=== PATIENT | female | born 1965 | race Caucasian/White ===

== ENCOUNTER 2020-01-10 01:27 | Emergency (ER) | payer BC, SELFPAY ==
--- NOTE | ~2020-01-10 | CT_ITS ---
EXAMINATION: CT abdomen pelvis w con DATE: 01/10/2020 02:23 INDICATION: Right flank pain TECHNIQUE: Computed tomography (CT) of the abdomen and pelvis was performed with 100 mL Omnipaque-350 intravenous contrast. Automated exposure control and iterative reconstruction technique were employe d. The dose-length product was 661.62 mGy-cm. COMPARISON: None FINDINGS: Minimal left basilar atelectasis. Heart size is normal. No pericardial or pleural effusion. Small sli ding-type hiatal hernia. 3 hepatic cysts the largest measuring 3.9 cm in maximal diameter. Gallbladde r, spleen, pancreas and bilateral adrenal glands are normal. Bilateral nephrolithiasis and obstructin g 2.5 mm stone at the right ureterovesicular junction with mild right hydroureteronephrosis and periu reteral stranding. There is also asymmetric mildly delayed right nephrogram. Additional 3 mm stone in an upper pole calyx of the left kidney and nonobstructing 2 mm stone in an upper pole calyx of the l eft kidney. Intestinal malrotation. No abnormal bowel wall thickening or obstruction. The appendix is not visualized. No pericecal inflammatory change to suggest acute appendicitis. Bladder is normal. U terus and bilateral adnexa are unremarkable. No free intraperitoneal gas or fluid. No pathologically enlarged abdominal or pelvic lymphadenopathy. Mild lumbar levocurvature. IMPRESSION: 1. Bilateral nephrolithiasis with obstructing 3 mm stone at the right ureterovesicular junction resul ting in mild right hydroureteronephrosis and delayed right nephrogram. 2. Small sliding-type hiatal hernia. 3. Intestinal malrotation. Reviewed, dictated and finalized at location A. IMPRESSION: 1. Bilateral nephrolithiasis with obstructing 3 mm stone at the right ureterove sicular junction resulting in mild right hydroureteronephrosis and delayed righ t nephrogram. 2. Small sliding-type hiatal hernia. 3. Intestinal malrotation.
[2020-01-10 01:26] VITALS: BP 172/97; PULSE 86; RESP 23; TEMP 36.7; O2SAT 100
--- NOTE | 2020-01-10 01:27 | ED.ABDPAIN ---
HPI - Abdominal Pain General Chief Complaint: Abdominal Pain Stated Complaint: abd pain Time Seen by Provider: 01/10/20 01:27 Source: patient and RN notes reviewed Mode of arrival: EMS Limitations: clinical condition History of Present Illness HPI narrative: A 54 y/o female presents to the ED via EMS from home with severe, constant, rt flank pain beginning roughly 1 hour ago. She states that the pain radiates into her RLQ. She reports some associated N/V and dysuria. MD elicited complaint: flank pain Onset (ago): hour(s) (1) Pain Consistency: constant Location: R flank Severity: severe Radiation: RLQ Associated symptoms: nausea, vomiting and dysuria Related Data Allergies Allergy/AdvReac Type Severity Reaction Status Date / Time Penicillins Allergy Rash Verified 01/10/20 02:48 Review of Systems Review of Systems: All systems reviewed & are unremarkable except as noted in HPI and below Gastrointestinal: Gastrointestinal: Reports nausea and Reports vomiting Genitourinary: Genitourinary: Reports dysuria and Reports flank pain (Rt that radiates into her RLQ) [facility] Past Medical History Medical History Ankylosing spondylitis Medical history unknown Surgical History Surgical History History of appendectomy History of colonoscopy Surgical history unknown Social History Social History Smoking status: Unknown if ever smoked Exam Const: General: healthy appearing and alert Orientation/consciousness: patient oriented x3 Other: moderate ditress HENMT: Head: normal to inspection Mouth: Yes moist mucous membranes Resp: Effort & Inspection: normal respiratory effort Auscultation: clear to auscultation bilaterally Cardio: Rate: regular rate Rhythm: regular rhythm GI: GI Palp: Yes Soft to palpation and Yes Tenderness to palpation present (GI) Skin: General skin exam: normal color Neuro: General: patient oriented x3 and moves all extremities Speech: normal speech Extrem: General: normal to inspection Psych: Affect: Anxious affect present Course Vital Signs Vital signs: Vital Signs Temperature 36.7 C 01/10/20 01:26 Pulse Rate 86 01/10/20 01:26 Respiratory Rate 23 H 01/10/20 01:26 Blood Pressure 172/97 H 01/10/20 01:26 Pulse Oximetry 100 01/10/20 01:26 Temperature 36.7 C 01/10/20 01:26 Pulse Rate 88 01/10/20 03:56 Respiratory Rate 18 01/10/20 03:56 Blood Pressure 132/77 01/10/20 03:56 Pulse Oximetry 98 01/10/20 03:56 MDM - Abdominal Pain Differential Diagnosis Differential diagnosis: Likely abdominal pain, calculus of kidney, pancreatitis and small bowel obstruction Medical Records Attestation: I reviewed the patient's medical records. Lab Data Attestation: I reviewed the patient's lab results. Result diagrams: 01/10/20 01:40 01/10/20 01:40 Labs: Lab Results 01/10/20 01/10/20 01/10/20 Range/Units 01:40 01:40 03:15 WBC 12.9 H (4.5-10.0) K/mm3 RBC 4.41 (4.2-5.4) M/mm3 Hgb 13.1 (12.0-15.0) g/dL Hct 39.7 (37.0-47.0) % MCV 90.0 (80-100) fl MCH 29.7 (26-34) pg MCHC 33.0 (32-36) g/dl RDW 13.2 (11.5-14.5) % Plt Count 323 (150-375) k/mm3 MPV 9.2 (7.4-10.4) fl Immature Gran % (Auto) 0.2 (0-0.5) % Neut % (Auto) 72.0 (45.5-73.1) % Lymph % (Auto) 22.3 (18.3-44.2) % [place] % (Auto) 4.1 (2.6-8.5) % Eos % (Auto) 0.5 (0-4.4) % Baso % (Auto) 0.9 (0.2-1.2) % Lymph # (Auto) 2.88 (0.9-3.2) K/mm3 [place] # (Auto) 0.5 (0.1-0.6) K/mm3 Eos # (Auto) 0.1 (0-0.3) K/mm3 Baso # (Auto) 0.1 (0.0-0.1) K/mm3 Abs Immat Gran (auto) 0.03 (0.00-0.031) K/mm3 Absolute Neuts (auto) 9.3 H (1.3-6.7) K/mm3 Absolute Nucleated RBC 0.0 (0.0-0.012) K/mm3 Nucleated RBC % 0.0 (0.0-0.2) % Sodium 139 (137-145) mmol/L Pot
[2020-01-10] MEDS: ONDANSETRON INJ 4 MG/2 ML VIAL IV PUSH (01:46)
[2020-01-10 01:48] LABS: Basophils Absolute Auto 0.1 K/mm3 (0.0-0.1); Basophils Percent Auto 0.9 % (0.2-1.2); Eosinophils Absolute Auto 0.1 K/mm3 (0-0.3); Eosinophils Percent Auto 0.5 % (0-4.4); Hematocrit 39.7 % (37.0-47.0); Hemoglobin 13.1 g/dL (12.0-15.0); Immature Granulocyte Absolute 0.03 K/mm3 (0.00-0.031); Immature Granulocyte Percent A 0.2 % (0-0.5); Lymphocytes Absolute Auto 2.88 K/mm3 (0.9-3.2); Lymphocytes Percent Auto 22.3 % (18.3-44.2); Mean Corpuscular Hemoglobin 29.7 pg (26-34); Mean Platelet Volume 9.2 fl (7.4-10.4); Monocytes Absolute Auto 0.5 K/mm3 (0.1-0.6); Monocytes Percent Auto 4.1 % (2.6-8.5); Neutrophils Absolute Auto 9.3 K/mm3 (1.3-6.7); Platelet Count Result 323 k/mm3 (150-375); Red Blood Count 4.41 M/mm3 (4.2-5.4); Red Cell Distribution Width 13.2 % (11.5-14.5); White Blood Count 12.9 K/mm3 (4.5-10.0)
[2020-01-10 02:02] LABS: Alanine Aminotransferase 19 U/L (4-35); Albumin Level 4.4 g/dL (3.5-5.1); Alkaline Phosphatase 110 U/L (38-126); Aspartate Amino Transferase 22 U/L (14-36); Bilirubin,Total 0.2 mg/dL (0.2-1.3); Blood Urea Nitrogen 18 mg/dL (7-17); Calcium 9.6 mg/dL (8.4-10.2); Carbon Dioxide 22 mmol/L (22-30); Chloride 107 mmol/L (98-107); Estimated Glomerular Filt Rate > 60; Glucose 182 mg/dL (65-105); Lipase 74 U/L (23-300); Potassium 4.1 mmol/L (3.4-5.0); Sodium 139 mmol/L (137-145)
[2020-01-10] MEDS: TAMSULOSIN HCL 0.4 MG CAPSULE PO (02:49)
[2020-01-10] MEDS: KETOROLAC 30 MG/ML VIAL (*BKC) IV PUSH (02:50)
[2020-01-10] MEDS: SODIUM CHLORIDE 0.9% IV 1,000 ML 999 ML IV CONT (02:50)
[2020-01-10 03:34] LABS: Add Urine Microscopic? YES; Appearance Urine Clear (Clear); Bilirubin Urine Negative (Negative); Blood Urine 1+ (Negative); Color Urine Colorless (Yellow); Glucose Urine UA Negative (Negative); Ketones Urine Trace mg/dL (Negative); Leukocyte Esterase Ur Negative LEU/UL (Negative); Nitrate Urine Negative (Negative); Protein Urine Negative (Negative); Urobilinogen Urine Negative mg/dL (<2.0); WBC Urine 0-3 /hpf
[2020-01-10 03:56] VITALS: BP 132/77; PULSE 88; RESP 18; O2SAT 98
[2020-01-10 04:00] LABS: Specific Grav Ur 1.046 (1.001-1.035)
== END 2020-01-10 03:57 | disposition home or self-care (01) ==
PROVIDERS: Emergency Provider Emergency Medicine; PCP Family Medicine
DX: N13.2 Hydronephrosis with renal and ureteral calculous obstruction (principal); M45.9 Ankylosing spondylitis of unspecified sites in spine
CPT/HCPCS: 36415; 74177; 80053; 81001; 83690; 85025; 96361; 96374; 96375; 99284; A9270; J1885; J2405; J3010; J7030; Q9967

== ENCOUNTER 2020-04-14 13:07 | Emergency (ER) | payer BC, SELFPAY ==
--- NOTE | ~2020-04-14 | XR_ITS ---
XR wrist RT min 3V 04/14/2020 14:30 Indication: Right wrist pain after fall Procedure: 3 views right wrist Comparison: No prior studies for comparison. Findings: There is a comminuted intra-articular impaction fracture of the distal radius. There is mil d dorsal tilt. There is an ulnar styloid avulsion fracture. No definite carpal fracture. Impression: 1: Comminuted intra-articular impaction fracture distal aspect of the right radius with mild dorsal t ilt. 2: Ulnar styloid avulsion fracture. Reviewed, dictated and finalized at location A. Impression: 1: Comminuted intra-articular impaction fracture distal aspect of the right rad ius with mild dorsal tilt. 2: Ulnar styloid avulsion fracture.
--- NOTE | ~2020-04-14 | XR_ITS ---
EXAMINATION: XR pelvis 1-2V EXAM DATE: 04/14/2020 14:29 INDICATION: Fall from 12 foot duct. TECHNIQUE: Pelvis frontal projection(s) obtained and reviewed. There is no prior study for compariso n. Correlation was made with CT abdomen same date. FINDINGS: There are no acute pelvic fractures or dislocations identified. There is no subcutaneous g as. The soft tissue is unremarkable. Calcifications in the pelvis are believed to be phleboliths. There are no radiopaque foreign bodies. IMPRESSION: No acute osseous findings. Reviewed, dictated and finalized at location B. IMPRESSION: No acute osseous findings.
--- NOTE | ~2020-04-14 | XR_ITS ---
EXAMINATION: XR wrist LT 2V DATE: 04/14/2020 14:30 INDICATION: Left wrist pain post fall TECHNIQUE: Posteroanterior and lateral views of the left wrist were obtained. COMPARISON: none FINDINGS: Minimally displaced intra-articular fracture of the distal left radius. There is approximately 1 mm p almar displacement of a fragment compressing the palmar half of the distal articular surface with 1 m m lucent fracture plane without appreciable incongruity at the central articular surface on the later al projection. No other fractures identified. Normal alignment and joint spaces at the carpus. Periph eral IV at the dorsal aspect of the left hand. IMPRESSION: 1. Minimal displacement of an intra-articular fracture of the distal left radius. Reviewed, dictated and finalized at location A. IMPRESSION: 1. Minimal displacement of an intra-articular fracture of the distal left radiu s.
--- NOTE | ~2020-04-14 | CT_ITS ---
EXAMINATION: CT brain wo con DATE: 04/14/2020 13:56 INDICATION: 12 foot fall presenting with neck pain TECHNIQUE: Computed tomography (CT) of the head was performed without intravenous contrast. Sagittal and coronal reconstructions were performed. The mA was adjusted according to patient size. Iterative reconstruction technique was employed. The dose-length product was 529.67 mGy-cm. COMPARISON: Brain MR dated 11/28/2013 FINDINGS: No fracture. No acute intracranial hemorrhage, acute infarction or abnormal extra axial fluid collect ion. Ventricles are normal and symmetric. No mass/mass effect. The orbits, paranasal sinuses and mast oid air cells are normal. IMPRESSION: 1. Normal head CT. No fracture or acute intracranial process. Reviewed, dictated and finalized at location A.
--- NOTE | ~2020-04-14 | XR_ITS ---
XR knee LT min 4V 04/14/2020 14:29 INDICATION: Left lateral knee pain after fall PROCEDURE: 4 views left knee COMPARISON: No prior studies for comparison. FINDINGS: Fracture, dislocation or subluxation is not identified. No significant joint effusion. Ther e is a fabella, normal variant. The soft tissues appear within normal limits. No foreign bodies are identified. IMPRESSION: 1: NO ACUTE BONE OR JOINT ABNORMALITY IDENTIFIED. Reviewed, dictated and finalized at location A.
--- NOTE | ~2020-04-14 | XR_ITS ---
EXAMINATION: XR chest 1V EXAM DATE: 04/14/2020 14:30 INDICATION: Fall from 12 foot ladder. TECHNIQUE: Portable AP frontal chest x-ray was obtained. There is no prior study for comparison. FINDINGS: Acute comminuted right mid clavicular fracture with complete shaft width inferior displacem ent. The lungs are clear. There are no pleural effusions. The cardiomediastinal silhouette is withi n normal limits. There is no pneumothorax suspected. IMPRESSION: 1. No acute cardiopulmonary findings. 2. Right midclavicular shaft fracture. Reviewed, dictated and finalized at location B.
--- NOTE | ~2020-04-14 | XR_ITS ---
EXAMINATION: XR shoulder RT min 2V DATE: 04/14/2020 14:30 INDICATION: Right shoulder pain post fall TECHNIQUE: AP internally rotated, AP oblique externally rotated and transscapular Y views of the righ t shoulder were obtained. COMPARISON: None FINDINGS: Comminuted mid right clavicular diaphyseal fracture. There is one shaft width caudal displacement of the lateral fragment and mild angulation of a short intervening segmental fragment. Normal alignment at the right glenohumeral and acromioclavicular joints with mild acromioclavicular osteoarthritis and relatively preserved right glenohumeral joint space. No other fractures identified. Visualized porti ons of the lungs are clear. IMPRESSION: One shaft width displacement of a mildly comminuted fracture of the mid right clavicle. Reviewed, dictated and finalized at location A. IMPRESSION: One shaft width displacement of a mildly comminuted fracture of the mid right c lavicle.
--- NOTE | ~2020-04-14 | CT_ITS ---
EXAMINATION: CT cervical spine wo con DATE: 04/14/2020 13:57 INDICATION: Neck pain post 12 foot fall. TECHNIQUE: Computed tomography (CT) of the cervical spine was performed without intravenous contrast. Automated exposure control and iterative reconstruction technique were employed. The dose-length pro duct was 239.88 mGy-cm. COMPARISON: None FINDINGS: Alignment is normal. Vertebral body heights are normal. No fracture. Moderate disc height loss at C5- C6 and C6-C7. Mild disc height loss at C4-C5. Moderate to severe bilateral uncovertebral osteoarthrit is and posterior disc osteophyte complex at each of these levels resulting in mild central canal sten osis and mild bilateral neural foraminal stenosis. Cervical soft tissues are unremarkable. Mild biapi osorio pleural-parenchymal scarring. IMPRESSION: 1. Moderate cervical spondylosis. No acute osseous abnormality. Reviewed, dictated and finalized at location A.
[2020-04-14 13:13] VITALS: BP 102/81; RESP 18; TEMP 36.3; O2SAT 98
--- NOTE | 2020-04-14 13:35 | ECG_ITS ---
Measurements Intervals [place] Rate: 67 P: 47 [place]: 149 QRS: 69 QRSD: 89 T: 78 QT: 368 QTc: 390 Interpretive Statements SINUS RHYTHM BASELINE ARTIFACT- I, III, AVR, AVL NORMAL ECG Electronically Signed On 04-14-2020 14:53:19 CDT by Kendell León D.O.
[2020-04-14 13:36] VITALS: BP 101/70; PULSE 86; O2SAT 97
--- NOTE | 2020-04-14 13:38 | ED.FALL ---
HPI - Fall General Chief Complaint: Fall Stated Complaint: Fall from 12ft deck Time Seen by Provider: 04/14/20 13:30 Source: patient Mode of arrival: ambulatory Limitations: no limitations History of Present Illness HPI Narrative: This patient is a 55 year old female with ankylosing spondylitis who presents for evaluation of right shoulder and right wrist pain s/p fall. She states she fell throough hole on her deck and she fell foward onto ground. She states she was able to roll over and she had severe pain to right shoulder and right wrist. She denies LOC, headache. She does have some mild neck pain but no back pain. She also reports pain to left knee when she tries to bear weight. She denies any other complaints such as chest pain, dizziness, lightheadedness. Onset (ago): minute(s) Fall from: from height (distance) (12 ft) Place fall occurred: home Loss of consciousness: none Related Data Home Medications Medication Instructions Recorded Confirmed esomeprazole magnesium [Nexium] 40 mg PO DAILY 04/14/20 Allergies Allergy/AdvReac Type Severity Reaction Status Date / Time bazedoxifene Allergy Intermediate hives Verified 02/01/20 10:45 codeine Allergy Unknown Verified 02/01/20 10:45 estrogens, conjugated Allergy Unknown Verified 02/01/20 10:45 Sulfa (Sulfonamide Allergy Unknown Verified 02/01/20 10:45 Antibiotics) sulfanilamide Allergy Unknown Verified 02/01/20 10:45 Penicillins Allergy Rash Verified 02/01/20 10:45 Review of Systems Review of Systems: All systems reviewed & are unremarkable except as noted in HPI and below Constitutional: Constitutional: Denies chills and Denies fever(s) ENT: Denies epistaxis and Denies sore throat Cardiovascular: Cardiovascular: Denies chest pain Respiratory: Respiratory: Denies cough and Denies dyspnea Gastrointestinal: Gastrointestinal: Denies abdominal pain, Denies diarrhea, Denies nausea and Denies vomiting Musculoskeletal: Musculoskeletal: Denies back pain and Reports arthralgias (right shoulder, right wrist. ) Neurologic: Denies dizziness, Denies headache(s), Denies focal weakness and Denies numbness PMFSH Social History Social History Smoking status: Unknown if ever smoked Second hand tobacco smoke exposure: No Alcohol intake: current Exam Const: General: alert Orientation/consciousness: patient oriented x3 HENMT: Head: normocephalic and atraumatic Other: in cervical collar Eyes: Pupils: Equal, round and reactive pupils present EOM: EOMs intact bilaterally Chest: Chest palpation & inspection: normal inspection of the chest Resp: Effort & Inspection: normal respiratory effort and no retractions Auscultation: clear to auscultation bilaterally Cardio: Rate: regular rate Rhythm: regular rhythm Heart sounds: no murmurs GI: Inspection: non-distended Auscultation: normal bowel sounds Other: no tenderness Neuro: General: patient oriented x3 Extrem: Other: right midclavical swelling and tenderness, right wrist deformity and pain. Able to move fingers bilaterally, Neurovascularly intact Psych: Mental Status: mental status grossly normal Affect: normal affect Course Reevaluation(s) Reevaluation #1: Nursing staff placed bilateral short volar splints to both wist using OCL Date: 04/14/20 Time: 18:15 Consultations Consultation #1: I spoke to our orthopedic surgeon Dr. Branham . He reviewed films and he states due to mechanism he recommends being evaluated at trauma . Date: 04/14/20 Time: 15:50 Consultation #2: I have discussed with Dr. Buckner for [facility] physician and he accepts patient. Date: 04/14/20 Time: 15:51 Vital Signs Vital signs: Vital Signs Temperature 97.3 F L 04/14/20 13:13 Respiratory Rate 18 04/14/20 13:13 Blood Pressure 102/81 04/14/20 13:13 Pulse Oximetry 98 04/14/20 13:13 Temperature 97.3 F L 04/14/20 13:13 Pulse Rate
[2020-04-14] MEDS: LACTATED RINGERS 1,000 ML 999 ML IV CONT (13:46)
[2020-04-14] MEDS: ONDANSETRON INJ 4 MG/2 ML VIAL IV PUSH (13:46)
--- NOTE | 2020-04-14 13:50 | PC.NURSE ---
patient to ct
[2020-04-14 15:37] VITALS: BP 102/63; PULSE 85; RESP 17; O2SAT 98
[2020-04-14 18:06] VITALS: BP 120/69; PULSE 87; O2SAT 98
[2020-04-14 19:08] VITALS: BP 138/86; PULSE 86; RESP 17; O2SAT 98
== END 2020-04-14 19:09 | disposition short-term general hospital (02) ==
PROVIDERS: Emergency Provider General Practice; PCP Family Medicine
DX: S52.571A Other intraarticular fracture of lower end of right radius, initial encounter for closed fracture (principal); S52.611A Displaced fracture of right ulna styloid process, initial encounter for closed fracture; S52.572A Other intraarticular fracture of lower end of left radius, initial encounter for closed fracture; S42.021A Displaced fracture of shaft of right clavicle, initial encounter for closed fracture; M47.812 Spondylosis without myelopathy or radiculopathy, cervical region; W13.8XXA Fall from, out of or through other building or structure, initial encounter
CPT/HCPCS: 29125; 70450; 71045; 72125; 72170; 73030; 73100; 73110; 73564; 93005; 96361; 96374; 96375; 96376; 99285; J1170; J2405; J7120; L0140

== ENCOUNTER 2020-04-22 01:45 | Emergency (ER) | payer BC, SELFPAY ==
--- NOTE | ~2020-04-22 | XR_ITS ---
EXAMINATION: XR shoulder LT min 2V, XR clavicle LT DATE: 04/22/2020 02:28 INDICATION: Left shoulder pain post fall TECHNIQUE: 1. AP internally and externally rotated, AP oblique externally rotated and transscapular Y views of t he left shoulder were obtained. 2. AP and angled AP views of the left clavicle were obtained. COMPARISON: None FINDINGS: Normal alignment and joint space at the left glenohumeral and acromioclavicular joints. Comminuted fr acture of the mid clavicle with a pair of oblique fracture lines by a 2.5-3 cm long interve meghan fragment. The bone fragments are in a zigzag configuration with minimal displacement and approxi mately 40 degree angulation of both fracture lines. The proximal and distal fragments are aligned jerod ng the same axis with the lateral fragment displaced approximately 2 cm caudally relative to the medi al fragment. No other fractures identified. Visualized portions of the lungs are clear. IMPRESSION: Angulated segmental fracture of the mid left clavicle. Reviewed, dictated and finalized at location A. IMPRESSION: Angulated segmental fracture of the mid left clavicle.
[2020-04-22 01:51] VITALS: BP 119/79; PULSE 72; RESP 14; TEMP 36.6; O2SAT 99
--- NOTE | 2020-04-22 02:24 | ED.GENADULT ---
HPI - General Adult General Chief complaint: Fall Stated complaint: fell off bed Time Seen by Provider: 04/22/20 02:11 Source: RN notes reviewed History of Present Illness HPI narrative: Patient presents emergency department from home for left shoulder pain. Patient states that this evening she was getting into bed when her left knee buckled on her and she fell landing on her left shoulder. Patient states that her arm have been tucked and when she fell hitting her shoulder. Patient did fall approximately week and a half ago causing bilateral wrist fractures as well as right clavicle fracture and injury to her left knee she is currently being followed by orthopedic at [facility] for all these. Patient states she did take [place] approximately 1 hour ago. She denies striking her head or any other injuries outside of the left shoulder. She notes pain with movement of the left arm in the region of the shoulder and the clavicle. Denies numbness or tingling to the extremities or any other symptoms Related Data Home Medications Medication Instructions Recorded Confirmed esomeprazole magnesium [Nexium] 40 mg PO DAILY 04/14/20 Allergies Allergy/AdvReac Type Severity Reaction Status Date / Time bazedoxifene Allergy Intermediate hives Verified 02/01/20 10:45 codeine Allergy Unknown Verified 02/01/20 10:45 estrogens, conjugated Allergy Unknown Verified 02/01/20 10:45 Sulfa (Sulfonamide Allergy Unknown Verified 02/01/20 10:45 Antibiotics) sulfanilamide Allergy Unknown Verified 02/01/20 10:45 Penicillins Allergy Rash Verified 02/01/20 10:45 Review of Systems Review of Systems: Narrative: Gen.: Denies fevers or chills Eyes: Denies eye pain or visual change ENT: Denies facial pain Respiratory: Denies shortness of breath or cough CV: Denies chest pain GI: Denies abdominal pain nausea, emesis Musculoskeletal: See HPI Neuro: Denies head injury or loss of consciousness Skin: Denies rash Except as documented, all other systems reviewed and negative PMF Past Medical History Medical History Acid reflux Ankylosing spondylitis Anxiety Cervical dysplasia Depression Irritable bowel Medical history unknown Migraines Social History Social History Smoking status: Unknown if ever smoked Second hand tobacco smoke exposure: No Alcohol intake: current Exam Narrative: Exam Narrative: APPEARANCE: No acute distress, nontoxic, resting in bed EYES: PERRL HEENT: Normocephalic, atraumatic, OMM RESPIRATORY: No respiratory distress Clear to auscultation bilaterally with no rhonchi wheezing or rales. CARDIOVASCULAR: Regular rate and rhythm without murmurs rubs or gallops. ABDOMINAL: Soft, nontender, nondistended, no rebound or guarding MUSCULOSKELETAl: Moves all extremities. Bilateral upper extremities and casts at the wrist tender palpation left anterior shoulder with no swelling or ecchymosis pain with flexion abduction of the left shoulder greater than 45 degrees, no tenderness of the left elbow, tender to palpation of the left anterior clavicle with mild deformity noted NEURO: Awake and alert. Following commands, speech normal, no focal deficits SKIN:: Warm, dry. No rashes lesions or abrasions PSYCHIATRIC: Normal affect/mood, Course Course Emergency Course: Discussed with patient results of workup and diagnosis. Discussed need for follow-up with primary care, proper use of medication, and reasons to return to the emergency department. Patient understands and agrees to current treatment plan. I will have patient follow-up with her orthopedic doctor at [facility] Vital Signs Vital signs: Vital Signs Temperature 97.9 F 04/22/20 01:51 Pulse Rate 72 04/22/20 01:51 Respiratory Rate 14 04/22/20 01:51 Blood Pressure 119/79 04/22/20 01:51 Pulse Oximetry 99 04/22/20 01:51 Temperature 97.9 F
[2020-04-22 02:50] VITALS: BP 128/74; PULSE 74; RESP 16; O2SAT 97
[2020-04-22] MEDS: KETOROLAC (*BKC) 60 MG/2 ML VIAL IM (04:15)
[2020-04-22 04:57] VITALS: BP 114/81; PULSE 77; O2SAT 99
== END 2020-04-22 04:00 | disposition home or self-care (01) ==
PROVIDERS: Emergency Provider Emergency Medicine; PCP Family Medicine
DX: S42.022A Displaced fracture of shaft of left clavicle, initial encounter for closed fracture (principal); K21.9 Gastro-esophageal reflux disease without esophagitis; K58.9 Irritable bowel syndrome, unspecified
CPT/HCPCS: 73000; 73030; 96372; 99284; A4565; A9270; J1885

== ENCOUNTER → 2020-05-05 14:36 | Outpatient (CLI) | payer BC, SELFPAY ==
--- NOTE | ~2020-05-05 | MR_ITS ---
EXAMINATION: MR knee LT wo con DATE: 05/05/2020 15:23 INDICATION: Left knee injury and pain with instability. TECHNIQUE: Magnetic resonance imaging (MRI) of the left knee was performed without intravenous contra st. Sequences included axial PD-weighted FS FSE, coronal PD-weighted FSE and PD-weighted FS FSE, sagi ttal PD-weighted FSE, and sagittal T2-weighted FS FSE. COMPARISON: Left knee radiographs 04/14/2020 FINDINGS: Medial compartment: Medial meniscus is normal. Medial compartment cartilage is normal. There is mild bone marrow edema of tibial condyle medially. Lateral compartment: Lateral meniscus is normal. Femoral cartilage is normal. There is a nondisplaced fracture of lateral tibial plateau involving the anterolateral articular surface with low signal fracture line and bone m arrow edema. Patellofemoral compartment: There is cartilage surface irregularity of patellar medial facet. Trochlear cartilage is normal. Ligaments and tendons: Anterior and posterior cruciate ligaments are normal. There is a complete tear of medial collateral l igament proximally. Lateral collateral ligament complex is normal. Fluid: There is a small knee joint effusion. There is a moderate-sized Turner's cyst. There is mild semimembr anosus-tibial collateral ligament bursitis. IMPRESSION: 1. Nondisplaced fracture of lateral tibial plateau. 2. Mild chondrosis of patellofemoral compartment. 3. Complete tear of medial collateral ligament. 4. Small knee joint effusion. 5. Moderate-sized Turner's cyst. 6. Mild semimembranosus-tibial collateral ligament bursitis. Reviewed, dictated and finalized at location A.
== END ==
DX: M25.462 Effusion, left knee (principal); M71.22 Synovial cyst of popliteal space [Baker], left knee
CPT/HCPCS: 73721

== ENCOUNTER → 2020-05-18 11:25 | Outpatient (CLI) | payer BC, SELFPAY ==
--- NOTE | ~2020-05-18 | CT_ITS ---
EXAMINATION: CT abdomen pelvis wo/w con DATE: 05/18/2020 12:27 INDICATION: Gross hematuria TECHNIQUE: Computed tomography (CT) of the abdomen and pelvis was performed without and subsequently with 130 cc Omnipaque 350 intravenous contrast. Automated exposure control and iterative reconstructi on technique were employed. Exam dose: 1942.05 mGy-cm total exam DLP. COMPARISON: 01/10/2020 CT abdomen pelvis FINDINGS: The lung bases are clear of infiltrate or consolidation. Normal heart size. No pericardial or pleural effusion. There is an approximately 6.6 mm right ureteropelvic junction calculus with minimal right hydronephro sis. There is an approximately 4.8 mm nonobstructing upper pole left renal calculus. Approximately 1 cm and 4 mm right renal cysts. No other renal space occupying mass lesion is evident. Normal caliber of the abdominal aorta. No intraperitoneal or retroperitoneal or pelvic mass lesion or adenopathy or ascites. The urinary bladder is unremarkable. Uterus and adnexal areas are unremarkable. 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 No bowel obstruction, bowel wa ll thickening, pneumatosis or intraperitoneal free air is detected. Approximately 4.2 and 3.5 cm right hepatic cysts. Approximately 8 mm nonspecific hypoenhancing lesion of the lateral segment of the left hepatic lobe; differential diagnosis includes hemangioma. The hepatic lesions appear stable since 01/10/2020. Otherw ise the liver, gallbladder, spleen, pancreas, bile and pancreatic ducts are unremarkable. T10 vertebral body hemangioma. Included skeletal structures are otherwise unremarkable. IMPRESSION: Approximately 6.6 mm right ureteropelvic junction calculus with minimal right hydronephr osis 4.8 mm nonobstructing upper pole left renal calculus Right renal cysts Right hepatic cysts, small possible cyst or hemangioma of left hepatic lobe Malrotation anomaly of the bowel Reviewed, dictated and finalized at [facility]. Reviewed, dictated and finalized at location B. IMPRESSION: Approximately 6.6 mm right ureteropelvic junction calculus with mi nimal right hydronephrosis 4.8 mm nonobstructing upper pole left renal calculus Right renal cysts Right hepatic cysts, small possible cyst or hemangioma of left hepatic lobe Malrotation anomaly of the bowel
--- NOTE | ~2020-05-18 | XR_ITS ---
EXAMINATION: XR abdomen w oblique INDICATION: Gross hematuria TECHNIQUE: Supine views of the abdomen are obtained on four radiographs. COMPARISON: CT of the same date FINDINGS: Contrast from earlier CT partially opacifies the urinary tract. There is mild right hydrone phrosis continuing to the level of the UPJ where a stone is identified on the comparison CT. No addit ional urinary tract calculi are identified. The known left kidney upper pole stone is not demonstrate d. The bowel gas pattern is normal. IMPRESSION: 1. Mild right hydroureteronephrosis continuing to the level of the ureteropelvic junction at the site of the stone identified on earlier CT. Reviewed, dictated and finalized at location A. IMPRESSION: 1. Mild right hydroureteronephrosis continuing to the level of the ureteropelvi c junction at the site of the stone identified on earlier CT.
[2020-05-18 12:00] LABS: Estimated Glomerular Filt Rate > 60
== END ==
PROVIDERS: Visit Provider Urology
DX: R31.0 Gross hematuria (principal); N13.30 Unspecified hydronephrosis; N28.1 Cyst of kidney, acquired; K76.89 Other specified diseases of liver; Q43.3 Congenital malformations of intestinal fixation
CPT/HCPCS: 36415; 74021; 74178; Q9967

== ENCOUNTER → 2020-07-04 13:50 | Outpatient (CLI) | payer BC, SELFPAY ==
--- NOTE | ~2020-07-04 | XR_ITS ---
XR abdomen/kub 1V 07/04/2020 14:11 INDICATION: Gross hematuria TECHNIQUE: KUB COMPARISON: 05/18/2020 FINDINGS: Bowel gas pattern is normal. Moderate colonic fecal loading. There is no evidence of free a ir, mass, organomegaly, ascites or obstruction. No abnormal calculi are seen. The bones appear inta ct. IMPRESSION: 1: No acute abdominal abnormality identified. Reviewed, dictated and finalized at location A.
== END ==
PROVIDERS: PCP Family Medicine; Visit Provider Urology
DX: N20.1 Calculus of ureter (principal)
CPT/HCPCS: 74018

== ENCOUNTER 2020-07-13 02:21 | Outpatient (CLI) | payer BC, SELFPAY ==
[2020-07-13 18:24] LABS: SARS-CoV-2 RNA PCR Negative
== END 2020-07-13 02:22 | disposition home or self-care (01) ==
LOC: ANHCOVIDDT 02:22
PROVIDERS: PCP Family Medicine; Visit Provider Internal Medicine Gastroenterology
DX: Z01.812 Encounter for preprocedural laboratory examination (principal); Z20.828 Contact with and (suspected) exposure to other viral communicable diseases
CPT/HCPCS: 87635; C9803; U0003

== ENCOUNTER 2020-07-15 00:49 | Day surgery (SDC) | payer BC, SELFPAY ==
[2020-07-11 13:52] VITALS: BMI 29.1
[2020-07-15 09:01] VITALS: BP 155/62; PULSE 87; RESP 20; TEMP 37.1; O2SAT 97
[2020-07-15] MEDS: LACTATED RINGERS 1,000 ML 150 ML IV CONT (09:12)
--- NOTE | 2020-07-15 09:38 | WPDANESEPPF ---
Anes - Initial Pre Proc Eval Procedure: Operation Date: 07/15/20 10:00 Proposed Procedures p Esophagogastroduodenoscopy - Alen Johns MD Date/Time: 07/15/20 09:38 Surgeon: lAen Johns MD Pre Op Diagnosis: Gerd Patient Data Age: 55 Gender: F Height: 5 ft 4 in Weight: 78.4 kg Last Vital Signs Temp 98.8 F 07/15/20 09:01 Pulse 87 07/15/20 09:01 Resp 20 07/15/20 09:01 BP 155/62 H 07/15/20 09:01 Pulse Ox 97 07/15/20 09:01 Allergies Allergy/AdvReac Type Severity Reaction Status Date / Time bazedoxifene Allergy Intermediate hives Verified 07/15/20 08:56 estrogens, conjugated Allergy Unknown Unknown Verified 07/15/20 08:56 Sulfa (Sulfonamide Allergy Unknown Unknown Verified 07/15/20 08:56 Antibiotics) sulfanilamide Allergy Unknown Unknown Verified 07/15/20 08:56 Penicillins Allergy Rash Verified 07/15/20 08:56 Home Medications Medication Instructions Recorded Confirmed Type albuterol sulfate 90 mcg/actuation 2 inhalation INHALATION Q4H PRN 01/01/20 07/11/20 Rx aerosol inhaler #8.5 gm ryzyulwzxe-ynifdoxwtbbcy-icvgspog 1 cap PO Q4H PRN #30 cap 03/16/20 07/11/20 Rx 50 mg-300 mg-40 mg capsule duloxetine 60 mg capsule,delayed 60 mg PO DAILY #60 cap 05/24/20 07/11/20 Rx release lorazepam 0.5 mg tablet 0.5 mg PO TID PRN #90 tablet 06/29/20 07/11/20 Rx eszopiclone 2 mg PO HS 07/11/20 07/11/20 History etanercept [Enbrel SureClick] 50 mg SUBCUT [id number] 07/11/20 07/11/20 History fluticasone propionate [Flonase 1 spray INTRANASAL HS 07/11/20 07/11/20 History Allergy Relief] hyoscyamine sulfate 0.125 mg PO Q4H PRN 07/11/20 07/11/20 History naproxen sodium 550 mg PO DAILY 07/11/20 07/11/20 History omeprazole-sodium bicarbonate 1 cap PO DAILY 07/11/20 07/11/20 History [Zegerid OTC] ondansetron HCl 8 mg PO Q8H PRN 07/11/20 07/11/20 History Patient hx anesthesia problems: none Family hx anesthesia problems: none PMFSH Social History Social History Smoking status: Never smoker Second hand tobacco smoke exposure: No Alcohol intake: current Drinks per week: 14 Alcohol use details: BEER/WINE/WHISKEY Substance use: current Substance use type: marijuana Last use: 07/09/2020 Living arrangements: with family Spiritual care concerns: No Anes - Eval Final PreProcedure Day of Procedure 07/15/20 09:38 Patient weight: overweight Heart: regular rate and rhythm Lungs: clear to auscultation Airway: Mallampati scale class III Neurological: alert and oriented Last oral intake: >/= 8 hours ASA classification: II Emergent: no Anesthetic plan: proceed Anesthesia type and monitoring: general GIVS and standard monitoring Informed Consent: The patient's anesthetic plan and its attendant risks and benefits were discussed with the patient/family/POA. Questions were solicited and answers provided to the satisfaction of the patient/family/POA.
--- NOTE | 2020-07-15 09:49 | PM.HPGS ---
History of Present Illness History of Present Illness Consent: Risks, benefits, and alternatives have been discussed and questions answered. Patient agrees to proceed with procedure. Chief complaint: Gerd Narrative: Meeta Guerrero is a 55 year old female with chronic reflux symptoms who has been on medication for about 20 years. She has not had EGD to rule out Muro's. [facility] Past Medical History Medical History Acid reflux Ankylosing spondylitis Anxiety Cervical dysplasia Depression Irritable bowel Medical history unknown Migraines Surgical History Surgical History History of appendectomy History of appendectomy History of colonoscopy Surgical history unknown Family History Family History Father Hypertension, Onset Age: 201 Family history of diabetes mellitus in first degree relative Patient's father is Grandparent Family history of coronary artery disease, Onset Age: 197 Diabetes mellitus Mother Family history of elevated blood lipids Other Family history of arthritis Family history of malignant neoplasm Family history of malignant neoplasm of breast Family history of malignant neoplasm of male breast Family history of malignant neoplasm of ovary Social History Social History Smoking status: Never smoker Second hand tobacco smoke exposure: No Alcohol intake: current Drinks per week: 14 Alcohol use details: BEER/WINE/WHISKEY Substance use: current Substance use type: marijuana Last use: 07/09/2020 Living arrangements: with family Spiritual care concerns: No Meds Home Medications and Allergies Home Medications Medication Instructions Recorded Confirmed Type albuterol sulfate 90 mcg/actuation 2 inhalation INHALATION Q4H PRN 01/01/20 07/11/20 Rx aerosol inhaler #8.5 gm xtmcqpwiob-zlauejuokfuzs-wkyjjpck 1 cap PO Q4H PRN #30 cap 03/16/20 07/11/20 Rx 50 mg-300 mg-40 mg capsule duloxetine 60 mg capsule,delayed 60 mg PO DAILY #60 cap 05/24/20 07/11/20 Rx release lorazepam 0.5 mg tablet 0.5 mg PO TID PRN #90 tablet 06/29/20 07/11/20 Rx eszopiclone 2 mg PO HS 07/11/20 07/11/20 History etanercept [Enbrel SureClick] 50 mg SUBCUT [id number] 07/11/20 07/11/20 History fluticasone propionate [Flonase 1 spray INTRANASAL HS 07/11/20 07/11/20 History Allergy Relief] hyoscyamine sulfate 0.125 mg PO Q4H PRN 07/11/20 07/11/20 History naproxen sodium 550 mg PO DAILY 07/11/20 07/11/20 History omeprazole-sodium bicarbonate 1 cap PO DAILY 07/11/20 07/11/20 History [Zegerid OTC] ondansetron HCl 8 mg PO Q8H PRN 07/11/20 07/11/20 History Allergies Allergy/AdvReac Type Severity Reaction Status Date / Time bazedoxifene Allergy Intermediate hives Verified 07/15/20 08:56 estrogens, conjugated Allergy Unknown Unknown Verified 07/15/20 08:56 Sulfa (Sulfonamide Allergy Unknown Unknown Verified 07/15/20 08:56 Antibiotics) sulfanilamide Allergy Unknown Unknown Verified 07/15/20 08:56 Penicillins Allergy Rash Verified 07/15/20 08:56 Vital Signs Vital Signs - 24 hr 07/15/20 09:01 Temperature 37.1 C Pulse Rate 87 Respiratory Rate 20 Blood Pressure 155/62 H Pulse Oximetry 97 Exam Const: General: alert Orientation/consciousness: patient oriented x3 Resp: Auscultation: clear to auscultation bilaterally Cardio: Rhythm: regular rhythm GI: GI Palp: Yes Soft to palpation and No Tenderness to palpation present (GI) Neuro: General: patient oriented x3 Assessment and Plan Assessment and plan (1) GERD (gastroesophageal reflux disease): Code(s): K21.9 - Gastro-esophageal reflux disease without esophagitis Status: Acute Assessment and Plan: EGD with possible biopsy or dilatation or cautery.
[2020-07-15 10:36] VITALS: BP 127/76; PULSE 71; RESP 21; O2SAT 100
[2020-07-15 10:46] VITALS: BP 128/72; PULSE 66; RESP 29; O2SAT 100
[2020-07-15 10:56] VITALS: BP 122/75; PULSE 65; RESP 12; O2SAT 100
== END 2020-07-15 11:08 | disposition home or self-care (01) ==
PROVIDERS: PCP Family Medicine; Visit Provider Internal Medicine Gastroenterology
PROC: 0DJ08ZZ Inspection of Upper Intestinal Tract, Via Natural or Artificial Opening Endoscopic (ICD-10-PCS; CPT 43235; principal; 2020-07-15 10:00)
DX: K21.00 Gastro-esophageal reflux disease with esophagitis, without bleeding (principal); F12.90 Cannabis use, unspecified, uncomplicated; K58.9 Irritable bowel syndrome, unspecified; F41.8 Other specified anxiety disorders
CPT/HCPCS: 43239; 88305; J2001; J2704; J7120

== ENCOUNTER → 2020-09-01 13:58 | Outpatient (CLI) | payer BC, SELFPAY ==
--- NOTE | ~2020-09-01 | MM_ITS ---
EXAMINATION: MM screening jaylene BI w tina HISTORY: Screening mammogram, family history of breast cancer in her mother. TECHNIQUE: Craniocaudal and mediolateral oblique 3-D tomosynthesis images were obtained and synthetic 2-D images were generated. CAD analysis was submitted and interpreted. COMPARISON: 07/26/2019, 02/07/2018, 01/23/2017 BREAST PARENCHYMAL COMPOSITION: There are scattered areas of fibroglandular density. FINDINGS: There is no evidence of suspicious mass, calcification, or architectural distortion to sugg est malignancy in either breast. There has been no suspicious interval change. IMPRESSION: 1. No mammographic evidence of malignancy. 2. Recommend routine screening mammography in one year. BI-RADS Category 1: Negative Reviewed, dictated and finalized at location A. K9 HANDLER
== END ==
PROVIDERS: PCP Family Medicine; Visit Provider Student in an Organized Health Care Education/Training Program
DX: Z12.31 Encounter for screening mammogram for malignant neoplasm of breast (principal)
CPT/HCPCS: 77063; 77067

== ENCOUNTER 2020-11-14 10:57 | Outpatient (NON) | payer BC, SELFPAY ==
[2020-11-14 23:00] LABS: SARS-CoV-2 RNA PCR Negative
== END 2020-11-14 10:58 ==
PROVIDERS: PCP Family Medicine; Visit Provider Physician Assistant Medical
DX: Z20.822 Contact with and (suspected) exposure to COVID-19 (principal); R09.89 Other specified symptoms and signs involving the circulatory and respiratory systems
CPT/HCPCS: C9803; U0003; U0005

== ENCOUNTER 2020-12-13 14:49 | Outpatient (CLI) | payer BC, SELFPAY ==
--- NOTE | ~2020-12-13 | XR_ITS ---
EXAMINATION: XR abdomen/kub 1V INDICATION: Right ureteral stone TECHNIQUE: Supine views of the abdomen were obtained on 2 radiographs. COMPARISON: 07/04/2020 FINDINGS: A 4 mm calcification projecting over the left kidney may reflect left nephrolithiasis. No d efinite additional urolithiasis is identified. A moderate volume of colonic stool is present. Lung ba ses are clear. There is mild osteoarthritis of the hips. IMPRESSION: 1. Possible left nephrolithiasis. Reviewed, dictated and finalized at location A. AIR DIRECTOR
== END 2020-12-13 14:50 | disposition home or self-care (01) ==
LOC: ANHIMG 14:52
PROVIDERS: PCP Family Medicine; Visit Provider Urology
DX: N20.1 Calculus of ureter (principal)
CPT/HCPCS: 74018

== ENCOUNTER → 2021-05-05 08:47 | Outpatient (CLI) | payer BC, SELFPAY ==
--- NOTE | ~2021-05-05 | CT_ITS ---
EXAMINATION: CT sinus wo con DATE: 05/05/2021 09:15 INDICATION: Facial pressure and pain. Chronic sinusitis. TECHNIQUE: Computed tomography (CT) of the paranasal sinuses was performed without contrast. Iterativ e reconstruction technique was employed. Exam dose: 271.16 mGy-cm total exam DLP. COMPARISON: 04/14/2020 CT brain FINDINGS: There is an approximately 1.3 cm large periapical soft tissue density or abscess associated with left upper molar #16. There is rightward bowing of the nasal septum. There is asymmetric soft tissue swelling of the right inferior nasal turbinate. There is extensive soft tissue opacification of the middle meatus. There is mild mucoperiosteal thickening adjacent to the right maxillary ostium and partial soft tissu e opacification of the right infundibulum. There is complete opacification of the left maxillary ostium, infundibulum and left ethmoid bulla. The right frontal sinus is normal. There is complete opacification of the very small minimally developed left frontal sinus. There is nearly complete opacification of the left maxillary sinus without thinning, destruction or e xpansion of the bony wall of this maxillary sinus. There is mild nodular lower right maxillary soft tissue thickening and a small fluid level in the rig ht maxillary sinus. There is patchy opacification of ethmoid air cells bilaterally, more prominent on the left. There is minimal mucoperiosteal thickening of the sphenoid sinuses. The mastoid air cells are normally developed and aerated bilaterally. Middle and inner ear apparatus are unremarkable. IMPRESSION: Complete opacification of the left ostiomeatal unit and nearly complete opacification of the left maxillary sinus Extensive patchy soft tissue opacification of the left ethmoid air cells, mild patchy opacification o f right ethmoid Small fluid level in the right maxillary sinus, minimal inferior right maxillary sinus mucoperiosteal thickening Diminutive opacified left frontal sinus Minimal new comparison thickening of the sphenoid sinuses 1.3 cm large periapical soft tissue density or abscess at left upper molar August 29 Reviewed, dictated and finalized at [facility]. Reviewed, dictated and finalized at location A. IMPRESSION: Complete opacification of the left ostiomeatal unit and nearly com plete opacification of the left maxillary sinus Extensive patchy soft tissue opacification of the left ethmoid air cells, mild patchy opacification of right ethmoid Small fluid level in the right maxillary sinus, minimal inferior right maxillar y sinus mucoperiosteal thickening Diminutive opacified left frontal sinus Minimal new comparison thickening of the sphenoid sinuses 1.3 cm large periapical soft tissue density or abscess at left upper molar Antonella mber 16
== END ==
PROVIDERS: PCP Family Medicine; Visit Provider Otolaryngology
DX: K04.7 Periapical abscess without sinus (principal)
CPT/HCPCS: 70486

== ENCOUNTER 2021-06-13 00:21 | Day surgery (SDC) | payer BC, SELFPAY ==
[2021-06-09 10:53] VITALS: BMI 30.1
--- NOTE | 2021-06-12 07:45 | PM.IMHP ---
H&P: HPI History of Present Illness Date/Time: 06/12/21 07:45 patient presents for planned left-sided sinus surgery. No change in symptoms no change in history. Chief Complaint: Odontogenic left sinusitis, chronic sinusitis Review of Systems Constitutional: Constitutional: Denies fatigue, Denies fever(s) and Denies lethargy Eyes: Eyes: Denies blurry vision and Denies change in vision ENT: Reports as per HPI Cardiovascular: Cardiovascular: Denies chest pain Respiratory: Respiratory: Denies cough Endocrine: Endocrine: Denies fatigue Hematologic/Lymphatic: Hematologic/Lymphatic: Denies easy bleeding, Denies easy bruising and Denies lymphadenopathy Allergic/Immunologic: Allergic/Immunologic: Denies seasonal rhinorrhea [facility] Past Medical History Medical History (Updated 05/15/21 @ 10:00 by NELA Avila) Acid reflux Ankylosing spondylitis Anxiety Bilateral clavicular fractures BMI 29.0-29.9,adult BMI 30.0-30.9,adult Cervical dysplasia Depression Irritable bowel Medical history unknown Migraines S/P extracorporeal shock wave therapy Surgical History Surgical History H/O endoscopy History of appendectomy History of appendectomy History of colonoscopy Surgical history unknown Family History Family History Father Hypertension, Onset Age: 201 Family history of diabetes mellitus in first degree relative Patient's father is Grandparent Family history of coronary artery disease, Onset Age: 197 Diabetes mellitus Mother Family history of elevated blood lipids Breast cancer Depression Sibling Depression Other Family history of arthritis Family history of malignant neoplasm Family history of malignant neoplasm of breast Family history of malignant neoplasm of male breast Family history of malignant neoplasm of ovary Social History Social History Smoking status: Never smoker Tobacco type: cigarettes Second hand tobacco smoke exposure: No Alcohol intake: current Drinks per week: 7 Alcohol use details: BEER/WINE/WHISKEY Substance use: current Substance use type: marijuana Other substance usage details: DAILY Last use: 07/09/2020 Additional occupation/education comments: compliance Gender identity (if verbalized by the patient): Female Spiritual care concerns: No Meds Home Medications and Allergies Home Medications Medication Instructions Recorded Confirmed Type albuterol sulfate 90 mcg/actuation 2 inhalation INHALATION Q4H PRN 01/01/20 06/09/21 Rx aerosol inhaler #8.5 gm Enbrel SureClick 50 mg SUBCUT [id number] 07/11/20 06/09/21 History fluticasone propionate [Flonase 1 spray INTRANASAL HS 07/11/20 06/09/21 History Allergy Relief] hyoscyamine sulfate 0.125 mg PO Q4H PRN 07/11/20 06/09/21 History naproxen sodium 550 mg PO PRN PRN 07/11/20 06/09/21 History omeprazole-sodium bicarbonate 1 cap PO DAILY 07/11/20 06/09/21 History [Zegerid OTC] aspirin 81 mg tablet,delayed 81 mg PO PRN PRN 04/11/21 06/09/21 History release lorazepam 0.5 mg tablet 0.5 mg PO TID PRN #90 tablet 05/08/21 06/09/21 Rx aegipgifwt-cmqepfdedtdgk-pkaspoud 1 cap PO Q4H PRN #30 cap 06/07/21 06/09/21 Rx 50 mg-300 mg-40 mg capsule Sugar Balance 1 cap BID 06/09/21 06/09/21 History duloxetine 60 mg PO QAM 06/09/21 06/09/21 History eszopiclone [Lunesta] 2 mg PO HS 06/09/21 06/09/21 History garlic 1,200 mg PO HS 06/09/21 06/09/21 History niacin 100 mg PO HS 06/09/21 06/09/21 History omega 6-cmf-hyn-fish oil [Fish Oil] 2 cap PO DAILY 06/09/21 06/09/21 History ondansetron HCl [Zofran] 4 mg PO Q6H 06/09/21 06/09/21 History Allergies Allergy/AdvReac Type Severity Reaction Status Date / Time bazedoxifene Allergy Intermediate hives Verified 06/09/21 10:44 codeine Allergy Unkno
--- NOTE | 2021-06-12 13:46 | WPDANESEPPF ---
Anes - Initial Pre Proc Eval Procedure: Operation Date: 06/13/21 08:30 Proposed Procedures p Image Guided Left Maxillary Antrostomy, Anterior Ethmoidectomy, Frontal Sinusotomy - Yamil Fuentes MD Date/Time: 06/12/21 13:46 Surgeon: Yamil Fuentes MD Pre Op Diagnosis: chronic sinusitis Patient Data Age: 56 Gender: F Height: 1.63 m Weight: 79.54 kg Allergies Allergy/AdvReac Type Severity Reaction Status Date / Time bazedoxifene Allergy Intermediate hives Verified 06/09/21 10:44 codeine Allergy Unknown Hives Verified 06/09/21 10:44 estrogens, conjugated Allergy Unknown Hives Verified 06/09/21 10:44 Penicillins Allergy Unknown Hives Verified 06/13/21 06:47 Sulfa (Sulfonamide Allergy Unknown Hives Verified 06/09/21 10:44 Antibiotics) sulfanilamide Allergy Unknown Hives Verified 06/09/21 10:44 Home Medications Medication Instructions Recorded Confirmed Type albuterol sulfate 90 mcg/actuation 2 inhalation INHALATION Q4H PRN 01/01/20 06/09/21 Rx aerosol inhaler #8.5 gm Enbrel SureClick 50 mg SUBCUT [id number] 07/11/20 06/13/21 History fluticasone propionate [Flonase 1 spray INTRANASAL HS 07/11/20 06/13/21 History Allergy Relief] hyoscyamine sulfate 0.125 mg PO Q4H PRN 07/11/20 06/09/21 History naproxen sodium 550 mg PO PRN PRN 07/11/20 06/13/21 History omeprazole-sodium bicarbonate 1 cap PO DAILY 07/11/20 06/13/21 History [Zegerid OTC] aspirin 81 mg tablet,delayed 81 mg PO PRN PRN 04/11/21 06/13/21 History release lorazepam 0.5 mg tablet 0.5 mg PO TID PRN #90 tablet 05/08/21 06/13/21 Rx grhquqnoch-ueickmlquxdih-skolrjiw 1 cap PO Q4H PRN #30 cap 06/07/21 06/13/21 Rx 50 mg-300 mg-40 mg capsule Sugar Balance 1 cap BID 06/09/21 06/13/21 History duloxetine 60 mg PO QAM 06/09/21 06/13/21 History eszopiclone [Lunesta] 2 mg PO HS 06/09/21 06/13/21 History garlic 1,200 mg PO HS 06/09/21 06/13/21 History niacin 100 mg PO HS 06/09/21 06/13/21 History omega 1-oxp-jam-fish oil [Fish Oil] 2 cap PO DAILY 06/09/21 06/13/21 History ondansetron HCl [Zofran] 4 mg PO Q6H 06/09/21 06/09/21 History Patient hx anesthesia problems: none Family hx anesthesia problems: none PMFSH Past Medical History Medical History (Updated 05/15/21 @ 10:00 by Desirae Wahl, [facility]) Acid reflux Ankylosing spondylitis Anxiety Bilateral clavicular fractures BMI 29.0-29.9,adult BMI 30.0-30.9,adult Cervical dysplasia Depression Irritable bowel Medical history unknown Migraines S/P extracorporeal shock wave therapy Surgical History Surgical History H/O endoscopy History of appendectomy History of appendectomy History of colonoscopy Surgical history unknown Family History Family History Father Hypertension, Onset Age: 201 Family history of diabetes mellitus in first degree relative Patient's father is Grandparent Family history of coronary artery disease, Onset Age: 197 Diabetes mellitus Mother Family history of elevated blood lipids Breast cancer Depression Sibling Depression Other Family history of arthritis Family history of malignant neoplasm Family history of malignant neoplasm of breast Family history of malignant neoplasm of male breast Family history of malignant neoplasm of ovary Social History Social History Smoking status: Never smoker Tobacco type: cigarettes Second hand tobacco smoke exposure: No Alcohol intake: current Drinks per week: 7 Alcohol use details: BEER/WINE/WHISKEY Substance use: current Substance use type: marijuana Other substance usage details: DAILY Last use: 07/09/2020 Living arrangements: with family Additional occupation/education comments: compliance Gender identity (if verbalized by the patient): Female Spiritual care concerns: No Anes
[2021-06-13] VITALS (9 sets, daily range): BP systolic 99–138; BP diastolic 60–83; PULSE 68–92; RESP 11–20; TEMP 36.1; O2SAT 90–100
[2021-06-13] MEDS: ACETAMINOPHEN 500 MG TABLET 1000 MG PO (06:53)
[2021-06-13] MEDS: LACTATED RINGERS 1,000 ML 30 ML IV CONT ×2 (07:00→09:30)
--- NOTE | 2021-06-13 07:07 | WPDHPUPDATE1 ---
History and Physical Update Update Date/Time: 06/13/21 07:07 History and Physical has been reviewed, including an updated exam of the patient. There are NO changes in the patient's condition. Risks, benefits, and alternatives have been discussed and questions answered. Patient agrees to proceed with procedure.
[2021-06-13] MEDS: ceFAZolin 2 GM/D5W 50 ML 2 GM/50 ML BAG IVPB (07:53)
[2021-06-13] MEDS: OXYMETAZOLINE HCL 0.05% NAS 15 ML BTL (*BKC) 1 SPRAY XX (08:05)
[2021-06-13] MEDS: fentaNYL CITRATE INJ (*CRX) 100 MCG/2 ML VIAL 25 MCG IV PUSH ×2 (09:42→10:03)
--- NOTE | 2021-06-13 09:45 | W.PM.PROC2 ---
Procedure Note - Detailed Date of Procedure 06/13/21 Pre-op Diagnosis Left chronic sinusitis, left odontogenic sinusitis Post-op Diagnosis same Procedure Performed Left image guided maxillary antrostomy with tissue removed Left middle turbinectomy Left image guided anterior ethmoidectomy Surgeon Yamil Fuentes MD Anesthesia general Indications See above Findings Significant bleeding and inflammation throughout the procedure purulence in the maxillary sinus as well as left-sided anterior ethmoid cells middle turbinate removed for access given that it was completely obstructive Description of Procedure Patient correctly identified consent verified in the preoperative holding area. The patient was then brought to the operating room and a time-out was performed. General anesthesia was induced and endotracheal tube was secured the patient's airway and taped to the left lower lip. Patient was then prepped and draped for the aforementioned procedure. Second time-out performed. Afrin-soaked pledgets placed bilaterally and allowed to sit for 5 minutes. Image guidance initiated. A 0 degree endoscope utilized mild left septal deviation left inferior turbinate gently outfractured with caudal middle turbinate removed using straight through cuts the stump was cauterized using Bovie suction electrocautery maxillary sinus entered with image guidance using double ball tip probe back biter straight through cut copious amounts of purulence encountered this was irrigated approximately 4 times. Tissue was also in their infected tissue removed with micro debrider. Anterior ethmoids entered using a Kerrison and opened purulence encountered edematous tissue removed microdebrider. Bleeding was somewhat controlled using the intermittent application Packing placed at the end of the procedure. I performed all dictated portions care the patient was turned over to Anesthesiology. Total blood loss 25 cc no media complications. Drains No Packing Yes ( Absorbable) Pathology none sent Complications No immediate complications Condition stable Disposition PACU
[2021-06-13] MEDS: oxyCODONE HCL (*CRX) 5 MG TAB IR PO (10:44)
== END 2021-06-13 11:42 | disposition home or self-care (01) ==
PROVIDERS: PCP Family Medicine; Visit Provider Otolaryngology
PROC: (CPT 31254; principal; 2021-06-13 08:30)
DX: J32.9 Chronic sinusitis, unspecified (principal); J32.8 Other chronic sinusitis; J34.2 Deviated nasal septum; K21.9 Gastro-esophageal reflux disease without esophagitis; F41.9 Anxiety disorder, unspecified; F32.9 Major depressive disorder, single episode, unspecified; K58.9 Irritable bowel syndrome, unspecified; Z79.82 Long term (current) use of aspirin; Z79.899 Other long term (current) drug therapy; Z88.0 Allergy status to penicillin; Z88.2 Allergy status to sulfonamides
CPT/HCPCS: 31254; 31267; 61782; 30930; A9270; J0330; J0690; J1100; J2250; J2370; J2405; J2704; J3010; J7120

== ENCOUNTER → 2021-11-15 12:28 | Outpatient (CLI) | payer BC, SELFPAY ==
--- NOTE | ~2021-11-15 | MM_ITS ---
EXAMINATION: MM screening [facility] BI w tina HISTORY: Screening mammogram, family history of breast cancer in her mother. TECHNIQUE: Craniocaudal and mediolateral oblique 3-D tomosynthesis images were obtained and synthetic 2-D images were generated. CAD analysis was submitted and interpreted. COMPARISON: 09/01/2020, 07/28/2019, 02/07/2018 BREAST PARENCHYMAL COMPOSITION: There are scattered areas of fibroglandular density. FINDINGS: There is no evidence of suspicious mass, calcification, or architectural distortion to sugg est malignancy in either breast. There has been no suspicious interval change. IMPRESSION: 1. No mammographic evidence of malignancy. 2. Recommend routine screening mammography in one year. BI-RADS Category 1: Negative Reviewed, dictated and finalized at location A. [employer]
== END ==
PROVIDERS: PCP Family Medicine; Visit Provider Student in an Organized Health Care Education/Training Program
DX: Z12.31 Encounter for screening mammogram for malignant neoplasm of breast (principal)
CPT/HCPCS: 77063; 77067

== ENCOUNTER 2022-01-30 14:16 | Outpatient (CLI) | payer BC, SELFPAY ==
--- NOTE | ~2022-01-30 | XR_ITS ---
EXAM: XR abdomen/kub 1V HISTORY: KIDNEY STONE ON LT SIDE RECHECK COMPARISON: 12/13/2020. FINDINGS: Clear lung bases. Normal bowel gas pattern. No organomegaly. Stable 4 mm calcification pro jecting over the left inferior pole. Mild hip osteoarthritis, otherwise the regional bones and soft t issues normal for age. IMPRESSION: Stable left nephrolithiasis. Reviewed, dictated and finalized at location K.
== END 2022-01-30 14:17 | disposition home or self-care (01) ==
LOC: ANHIMG 14:20
PROVIDERS: PCP Family Medicine; Visit Provider Urology
DX: N20.0 Calculus of kidney (principal); M16.0 Bilateral primary osteoarthritis of hip
CPT/HCPCS: 74018

== ENCOUNTER 2022-05-15 07:38 | Outpatient (CLI) | payer BC, SELFPAY ==
--- NOTE | 2022-05-28 20:34 | WPDHOMESLEEP ---
Sleep Study - Home Unattended Date of Study: 05/15/22 Ordering Provider: Nick May MD Interpreting Provider: Maricel Mesa, DO Home Sleep Study Type: Apnea Link Air Height: 1.63 m Weight: 77.111 kg Body Mass Index: 29.2 Neck Circumference (inches): 16 [place]: 11 Reason for Sleep Study Snoring, insomnia Sleep History The patient is a 57 year old female with anxiety, ankylosing spondylitis, GERD, depression, migraines and history of tobacco use That had a sleep study ordered by her primary care for evaluation of sleep apnea. The patient had an rui on her phone that told her she had 62 apneas within 1 hour. The patient rarely awakens from sleep short of breath. She frequently awakens at night with heartburn, belching or cough. She constantly snores loud enough that others complain. He frequently has trouble sleeping when she has a cold. She denies waking up gasping for air throughout the night. He frequently sweats excessively at night. She denies having heart palpitations or irregular heartbeats during the night. He occasionally falls asleep during the day but never while driving. She denies sleep paralysis, cataplexy and hypnagogic / hypnopompic hallucinations. She rarely has trouble at school or work due to sleepiness. She denies feeling afraid of going to sleep. She occasionally has nightmares. She frequently remembers her dreams. She occasionally has thoughts racing through her mind. She rarely feels sad or depressed. She frequently has anxiety. She frequently has muscular tension. He frequently notices parts of her body jerk. She frequently kicks during the night. She frequently has crawling and aching feelings in her legs. He frequently has leg pain during the night. She constantly grinds her teeth during sleep and frequently awakens with morning jaw pain. She is constantly bothered by pain during the day and frequently awakened by pain during the night. She is constantly waking up feeling stiff in the morning. She constantly wakes up with sore or achy muscles. She constantly wakes up with pain in the neck, spine and other joints. She goes to bed between 11:00 p.m. and midnight on weekdays and at midnight on the weekends. It takes her 2 hours to fall asleep. She does not wake up throughout the night. She wakes up at 9:30 a.m. on weekdays and between 10-11 a.m. on the weekends. She typically gets 7-1/2 hours of sleep per night. She does not stay in bed after waking up in the morning. She currently lives with her . She does not consume any caffeinated beverages within 2 hours of bedtime. She occasionally engages in physical exercise before bedtime. She will read and watch television before falling asleep. She denies taking naps in the afternoon or the evening. She quit smoking 30 years ago. She drinks 2 cups of a caffeinated beverage per day. She drinks 2 alcoholic beverages per day. She will occasionally use cannabis. [facility] Past Medical History Medical History Acid reflux Ankylosing spondylitis Anxiety Bilateral clavicular fractures Broken wrist Cervical dysplasia COVID-19 Depression Irritable bowel Medical history unknown Migraines S/P extracorporeal shock wave therapy Tear of MCL (medial collateral ligament) of knee Surgical History Surgical History H/O endoscopy History of appendectomy History of appendectomy History of colonoscopy History of sinus surgery Surgical history unknown Family History Family History Father Hypertension, Onset Age: 201 Family history of diabetes mellitus in first degree relative Patient's father is Grandparent Family history of coronary artery disease, Onset Age: 197 Diabetes mellitus Mother Family history of elevated blood lipids
[2022-05-28 20:51] VITALS: BMI 29.2
== END 2022-05-16 13:27 | disposition home or self-care (01) ==
LOC: ANHCSM 07:53
PROVIDERS: PCP Family Medicine; Visit Provider Family Medicine
DX: F51.8 Other sleep disorders not due to a substance or known physiological condition (principal); G47.00 Insomnia, unspecified; G47.33 Obstructive sleep apnea (adult) (pediatric)
CPT/HCPCS: 95806

== ENCOUNTER 2022-06-26 07:50 | Outpatient (CLI) | payer BC, SELFPAY ==
--- NOTE | 2022-07-25 18:36 | WPDSLEEPSTUD ---
Sleep Study Date of Study: 06/26/22 Ordering Provider: MAXIMINO Faith Interpreting Physician: Mary Chandra MD Sleep Study Type: CPAP Titration Height: 1.6 m Weight: 77.111 kg Body Mass Index: 30.1 Neck Circumference (inches): 16 [place]: 11 Reason for Sleep Study Obstructive sleep apnea, here for CPAP titration * 05/15/2022 - HST with AHI of 30 with desaturation down to 84%. This is consistent with?severe sleep apnea. She still had over 15 central apneas during the study.? Sleep History Meeta Guerrero is a 57 year old female with anxiety, ankylosing spondylitis, GERD, depression, migraines and history of tobacco use?. She had a home sleep test 05/15/2022 with severe obstructive sleep apnea with an AHI 30. The patient rarely awakens from sleep short of breath.? She frequently awakens at night with heartburn, belching or cough.? She constantly snores loud enough that others complain.? He frequently has trouble sleeping when she has a cold.? She denies waking up gasping for air throughout the night.? She frequently sweats excessively at night.? She denies having heart palpitations or irregular heartbeats during the night.? She occasionally falls asleep during the day but never while driving.? She denies sleep paralysis, muscle weakness with strong emotion, vivid dreams on sleep onset or awakening. She rarely has trouble at school or work due to sleepiness.? She denies feeling afraid of going to sleep.? She occasionally has nightmares.? She frequently remembers her dreams.? She occasionally has thoughts racing through her mind.? She rarely feels sad or depressed.? She frequently has anxiety.? She frequently has muscular tension.? He frequently notices parts of her body jerking.? She frequently kicks during the night.? She frequently has crawling and aching feelings in her legs.? She frequently has leg pain during the night.? She constantly grinds her teeth during sleep and frequently awakens with morning jaw pain.? She is constantly bothered by pain during the day and frequently awakened by pain during the night.? She is constantly waking up feeling stiff in the morning.? She constantly wakes up with sore or achy muscles.? She constantly wakes up with pain in the neck, spine and other joints.? Normal bedtime is between 11:00 p.m. and midnight on weekdays and at midnight on the weekends.? It takes her 2 hours to fall asleep.? She does not wake during the night.? She wakes up at 9:30 a.m. on weekdays and between 10-11 a.m. on the weekends.? She typically gets 7-1/2 hours of sleep per night.? She does not stay in bed after waking up in the morning.? She denies taking naps in the afternoon or the evening.? Habits: Quit smoking 30 years ago.? She drinks 2 cups of a caffeinated beverage per day.? She drinks 2 alcoholic beverages per day.? She will occasionally use cannabis. [facility] Past Medical History Medical History Acid reflux Ankylosing spondylitis Anxiety Bilateral clavicular fractures Broken wrist Cervical dysplasia COVID-19 Depression Irritable bowel Medical history unknown Migraines S/P extracorporeal shock wave therapy Tear of MCL (medial collateral ligament) of knee Surgical History Surgical History H/O endoscopy History of appendectomy History of appendectomy History of colonoscopy History of sinus surgery Surgical history unknown Family History Family History Father Hypertension, Onset Age: 201 Family history of diabetes mellitus in first degree relative Patient's father is Grandparent Family history of coronary artery disease, Onset Age: 197 Diabetes mellitus Mother Family history of elevated blood lipids Breast cancer Depression Sibling Depression COVID-19 Other Family history of arthritis Family history of malig
[2022-07-25 19:05] VITALS: BMI 30.1
== END 2022-06-27 05:54 | disposition home or self-care (01) ==
LOC: ANHCSM 07:52
PROVIDERS: PCP Family Medicine; Visit Provider Nurse Practitioner Family
DX: G47.33 Obstructive sleep apnea (adult) (pediatric) (principal)
CPT/HCPCS: 95811

== ENCOUNTER 2023-04-23 16:31 | Outpatient (CLI) | payer BC, SELFPAY ==
--- NOTE | ~2023-04-23 | XR_ITS ---
EXAMINATION: XR abdomen/kub 1V DATE: 04/23/2023 16:46 INDICATION: Left kidney stone. TECHNIQUE: A supine view of the abdomen on 2 radiographs was obtained. COMPARISON: Abdomen radiographs 01/30/2022, CT abdomen and pelvis 05/18/2020 FINDINGS: There are no dilated loops of bowel. There is a large volume of stool in the colon. There a re phleboliths in right pelvis. There is a 4 mm stone in left kidney. IMPRESSION: 1. 4 mm stone in left kidney. Reviewed, dictated and finalized at location E.
== END 2023-04-23 16:32 | disposition home or self-care (01) ==
PROVIDERS: PCP Family Medicine; Visit Provider Nurse Practitioner Family
DX: N20.0 Calculus of kidney (principal)
CPT/HCPCS: 74018

== ENCOUNTER → 2023-05-28 12:29 | Outpatient (CLI) | payer BC, SELFPAY ==
--- NOTE | ~2023-05-28 | MM_ITS ---
EXAMINATION: MM screening [facility] BI w tina HISTORY: Screening TECHNIQUE: Craniocaudal and mediolateral oblique 3-D tomosynthesis images were obtained and synthetic 2-D images were generated. CAD analysis was submitted and interpreted. COMPARISON: Comparison to multiple prior studies sequentially, with oldest reviewed study dated 01/23. BREAST PARENCHYMAL COMPOSITION: There are scattered areas of fibroglandular density. FINDINGS: There is no evidence of suspicious mass, calcification, or architectural distortion to sugg est malignancy in either breast. There has been no suspicious interval change. IMPRESSION: 1. No mammographic evidence of malignancy. 2. Recommend routine screening mammography in one year. BI-RADS Category 1: Negative Reviewed, dictated and finalized at location A.
== END ==
PROVIDERS: PCP Obstetrics & Gynecology; Visit Provider Obstetrics & Gynecology
DX: Z12.31 Encounter for screening mammogram for malignant neoplasm of breast (principal)
CPT/HCPCS: 77063; 77067

== ENCOUNTER 2024-05-22 00:26 | Day surgery (SDC) | payer OTHER, SELFPAY ==
--- NOTE | 2024-05-19 15:27 | PC.NURSE ---
Addendum entered by Chloe Hendrickson RN 05/19/24 15:30: Patients states she has not been taking her NSAIDS for a week and will not take any prior to her surgery Original Note: Report to the Outpatient Waiting Room, entrance under the green pavilion located off [facility], at time ___929 on date _05/22/24 . Planned Procedure Time: _1130 . Time changes happen often and if your time is changed the preop area will call you the afternoon before. - You and your visitor will be asked to self-screen and do not enter if you have any COVID symptoms. - A mask is optional within the hospital at this time. Patients may have clear liquids (water, carbonated beverages, clear teas, apple juice) until 3 hours prior to surgery with a maximum of 20 ounces. - No food from midnight until time of surgery - Infants may have breast milk until 4 hours before surgery, infant formula 6 hours prior to surgery. - Children will be allowed to drink immediately following surgery. If applicable, please bring a bottle or sippy cup to assist with drinking. Juice, water, soda, and popsicles are readily available. For infants on formula, please bring formula the day of surgery. Pacifiers are allowed. Take the following medications with a SIP of water the morning of surgery: _Duloxetine DO NOT STOP ANY OF YOUR OTHER PRESCRIPTION MEDICATIONS PRIOR TO SURGERY ?EXCEPT THE FOLLOWING Medications to discontinue per physician ___Vitamins and supplements Date to take last dose___3 days prior Please no make-up, nail syriac, hairspray, perfume, deodorant, or body powder the day of surgery. No jewelry (including any body piercings) or valuables the day of surgery, leave them at home. Please take a shower or bath the night before, or the morning of, surgery with an antibacterial soap. Wear comfortable, loose fitting clothing. Children are encouraged to wear pajamas. - Jewelry must be removed prior to entering the operating room. Rings and piercings that are not removed may be cut off. - The hospital will not accept responsibility for valuables. - Please leave all valuables, including medications, at home the day of surgery. If you are going home after surgery, a licensed hazardous materials driver must drive you home. - NO public transportation without another adult if you receive anesthesia. - We recommend that an adult stay with you for 24 hours following discharge. - We also recommend that you do not drive, make important decision, drink alcoholic beverages, or take any drugs that were not prescribed by your health care provider for at least 24 hours after your discharge time. For Pediatric surgeries, we recommend two adults accompany the child home. Follow any additional instructions given to you from your surgeon. If you or anyone in your household have experienced Covid symptoms in the past week, please notify your surgeon or the nurse liaison at the phone number below for possible testing. Telephone instructions given to __Meeta and asked if any additional questions and then verbalized understanding. Patient advised to call surgeon office or pre surgery nurse liaison [phone] if any additional questions.
[2024-05-22] VITALS (14 sets, daily range): BP systolic 101–143; BP diastolic 52–74; PULSE 65–96; RESP 12–20; TEMP 36.2; O2SAT 93–100
[2024-05-22] MEDS: ACETAMINOPHEN 500 MG TABLET 1000 MG PO (10:22)
[2024-05-22] MEDS: LACTATED RINGERS 1,000 ML 30 ML IV CONT ×2 (10:25→12:02)
[2024-05-22] MEDS: KETOROLAC 15 MG/ML VIAL (*BKC) IV PUSH (10:27)
--- NOTE | 2024-05-22 10:29 | WPDANESEPPF ---
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 Patient Data Age: 59 Gender: F Height: 1.63 m Weight: 79.2 kg Last Vital Signs Temp 36.2 C L 05/22/24 09:52 Pulse 81 05/22/24 09:52 Resp 20 05/22/24 09:52 BP 143/74 H 05/22/24 09:52 Pulse Ox 97 05/22/24 09:52 O2 Del Method Room Air 05/22/24 09:52 Allergies Allergy/AdvReac Type Severity Reaction Status Date / Time codeine Allergy Unknown Hives Verified 05/22/24 09:49 estrogens, conjugated Allergy Unknown Hives Verified 05/22/24 09:49 Penicillins Allergy Unknown Hives Verified 05/22/24 09:49 Sulfa (Sulfonamide Allergy Unknown Hives Verified 05/22/24 09:49 Antibiotics) sulfanilamide Allergy Unknown Hives Verified 05/22/24 09:49 bazedoxifene AdvReac Intermediate hives Verified 05/22/24 09:49 Home Medications Medication Instructions Recorded Confirmed Type aspirin 81 mg tablet,delayed 81 mg PO PRN PRN Migraine Headache 04/11/21 05/22/24 History release (Adult Low Dose Aspirin) niacin 100 mg tablet 500 mg PO DAILY 06/09/21 05/22/24 History fluticasone propionate 50 1 - 2 spray intranasal BID 01/15/22 05/19/24 History mcg/actuation nasal spray,suspension (Flonase Allergy Relief) omeprazole 20 mg capsule,delayed 20 mg PO DAILY 03/14/22 05/22/24 History release cholecalciferol (vitamin D3) 50 50 mcg PO DAILY 10/10/22 05/22/24 History mcg (2,000 unit) capsule turmeric 100 mg-julio 150 2 cap PO HS 10/10/22 05/22/24 History mg-olive 50 mg-oreg 150 mg-capryl capsule adalimumab 40 mg/0.4 mL 40 mg subcut .every other week 05/03/23 05/19/24 History subcutaneous syringe kit (Humira(CF)) bitter melon extract 750 mg tablet 750 mg PO BID 06/04/23 05/22/24 History psyllium husk 0.4 gram capsule 0.4 g PO DAILY 06/04/23 05/22/24 History (Fiber (psyllium husk)) naproxen sodium 550 mg tablet 550 mg PO PRN PRN Pain #60 tabs 10/02/23 05/19/24 Rx gavkhwvzli-kymiqagxvrubp-gmshisxz 1 cap PO Q4H PRN pain #30 caps 02/03/24 05/19/24 Rx 50 mg-300 mg-40 mg capsule (Fioricet) duloxetine 60 mg capsule,delayed 60 mg PO DAILY #90 caps 04/20/24 05/22/24 Rx release eszopiclone 2 mg tablet 2 mg PO QHS #90 tabs 05/04/24 05/22/24 Rx anastrozole 1 mg tablet 1 mg PO DAILY 05/07/24 05/22/24 History lorazepam 0.5 mg tablet 1 mg PO HS 05/19/24 05/22/24 History Patient hx anesthesia problems: none Family hx anesthesia problems: none Results Review: All pre-operative results and documents have been reviewed as part of the pre-operative evaluation. [facility] Past Medical History Medical History Acid reflux Ankylosing spondylitis Anxiety Bilateral clavicular fractures BMI 28.0-28.9,adult Broken wrist Cervical dysplasia COVID-19 Depression Elevated hemoglobin A1c History of kidney stones Irritable bowel Joint pain Medical history unknown Migraines S/P extracorporeal shock wave therapy Tear of MCL (medial collateral ligament) of knee Surgical History Surgical History H/O endoscopy History of appendectomy History of appendectomy History of colonoscopy History of sinus surgery Surgical history unknown Family History Family History Father Hypertension, Onset Age: 201 Family history of diabetes mellitus in first degree relative Patient's father is Grandparent Family history of coronary artery disease, Onset Age: 197 Diabetes mellitus Mother Family history of elevated blood lipids Breast cancer Depression Sibling Depression COVID-19 Other Family history of arthritis Family his
--- NOTE | 2024-05-22 10:53 | WPDHPUPDATE1 ---
History and Physical Update Update Date/Time: 05/22/24 10:53 History and Physical has been reviewed, including an updated exam of the patient. There are NO changes in the patient's condition. Risks, benefits, and alternatives have been discussed and questions answered. Patient agrees to proceed with procedure.
[2024-05-22] MEDS: BUPivacaine HCL 0.5% 10 ML AMP 30 ML INFILTRATE (11:23)
--- NOTE | 2024-05-22 12:01 | PM.OP ---
Procedure Note - Brief Procedure Note - Brief Date of procedure: 05/22/24 Positive for Braca #2 Mutation Post-op diagnosis: Same Procedure performed: Laparoscopic bilateral salpingo-oophorectomy. Surgeon: Justin Beyer MD Anesthesia: GETA Estimated blood loss (mL): 5 Urine output (mL): 25 Drains: No Packing: No Pathology: Yes (right and left fallopian tubes and ovaries) Complications: No immediate complications Condition: Stable Disposition: Same day
[2024-05-22] MEDS: fentaNYL CITRATE INJ (*CRX) 100 MCG/2 ML VIAL 25 MCG IV PUSH ×4 (12:26→13:12)
--- NOTE | 2024-05-22 14:06 | SUR.PHASEII ---
1400 - MD Beyer contacted for discharge order and home prescription. Pt states she has tolerated hydrocodone well in the past. Prescription sent for hydrocodone to D/C home with per MD Beeyr
[2024-05-22] MEDS: oxyCODONE HCL (*CRX) 5 MG TAB IR PO (14:19)
--- NOTE | 2024-05-22 14:21 | SUR.PHASEII ---
1415- pt states she tolerates oxycodone well and requests pain pill prior to discharge
--- NOTE | 2024-05-22 14:38 | W.PM.PROC2 ---
Procedure Note - Detailed Date of Procedure 05/22/24 Pre-op Diagnosis Positive for Braca #2 Mutation Post-op Diagnosis Same Procedure Performed Laparoscopic bilateral salpingo-oophorectomy. Surgeon Justin Beyer MD Anesthesia General Findings Tricia uterus and normall appearing fallopian tubes and ovaries, small subserosal fibroids noted on uterus. Description of Procedure After obtaining informed consent, the patient was taken to the operating room where general endotracheal anesthesia was administered. She was examined under anesthesia. A normal size uterus was noted. The patient was placed in the dorsal-lithotomy position and prepped and draped in the usual sterile fashion. An acorn uterine manipulator was placed in the cervical canal. Attention was then turned to the patient's abdomen where a 5-mm incision was made in the inferior umbilicus. The abdominal wall was tented and VersaStep needle was inserted into the peritoneal cavity. Access into the intraperitoneal space was confirmed by a decrease in water level when the needle was filled with water. No peritoneum was obtained. The 5-mm trocar and sleeve were then advanced in to the intraabdominal cavity and access was confirmed with the laparoscope. She was placed in trendelenburg position and marcaine was injected at right side and an incision was made and a 5mm port was inserted under laparoscopic visualization. This was also done on the right side. The ligature was used and the left ovary and tube were removed and the same was done with the right ovary and fallopian tube. The ovaries would not fit throught the port for removal. The right 5mm port removed and incision extended and a 10mm port inserted at same site under laparoscopic visualization and an endocath bag was inserted and both fallopian tubes and ovaries were placed in bag and bag removed. Hemostasis noted. She was taken out of trendelburg, pneumo and ports removed. Skin incisions closed with 4.0 vicry and dermabone and dressing. Uterine manipulator removed. Sponge count correct. Patient tolerated procedure well and was taken to recovery room in stable condition. Estimated Blood Loss 5 Urine Output 25 Drains No Packing No Pathology Yes (right and left fallopian tubes and ovaries) Condition Stable Disposition PACU [facility] Billing Surgery - Charge Forward: Surgery Billing
== END 2024-05-22 15:17 | disposition home or self-care (01) ==
PROVIDERS: PCP Family Medicine; Visit Provider Obstetrics & Gynecology
PROC: (CPT 49320; principal; 2024-05-22 11:30)
DX: Z40.02 Encounter for prophylactic removal of ovary(s) (principal); Z15.01 Genetic susceptibility to malignant neoplasm of breast; D25.9 Leiomyoma of uterus, unspecified; K21.9 Gastro-esophageal reflux disease without esophagitis; F32.A Depression, unspecified; F41.9 Anxiety disorder, unspecified; F12.90 Cannabis use, unspecified, uncomplicated; Z79.811 Long term (current) use of aromatase inhibitors; Z79.82 Long term (current) use of aspirin; Z79.620 Long term (current) use of immunosuppressive biologic; Z87.891 Personal history of nicotine dependence
CPT/HCPCS: 58661; 88305; A9270; J1100; J1885; J2250; J2405; J2704; J3010; J7030; J7120

== ENCOUNTER 2024-10-02 13:25 | Outpatient (CLI) | payer OTHER, SELFPAY ==
--- NOTE | ~2024-10-02 | XR_ITS ---
Clinical Indication: Cough PA and lateral views of the chest: Comparison: 04/14/2020 Findings: The lungs are clear, without evidence of focal consolidation or pleural effusion. Cardiome diastinal silhouette is within normal limits. Bones and soft tissues are unremarkable. Impression: Normal chest. Reviewed, dictated and finalized at [facility]. RY DERRICK OPERATOR Impression: Normal chest.
== END 2024-10-02 13:26 | disposition home or self-care (01) ==
PROVIDERS: PCP Family Medicine; Visit Provider Nurse Practitioner Family
DX: R05.9 Cough, unspecified (principal)
CPT/HCPCS: 71046